=== PATIENT | female | born 1965 | race Caucasian/White ===

== ENCOUNTER → 2017-02-16 | Day surgery (SDC) | payer MEDICARE, MEDICAID ==
[~2017-02-16] VITALS: Ht 162.6 cm; Wt 68.0 kg
[2017-02-16 07:05] VITALS: BP 120/83
== END | disposition left against medical advice (07) ==
LOC: OR 02-09 08:00 → GI 02-09 08:00 → EDBD 08:00
DX: K59.00 Constipation, unspecified (principal); Z53.29 Procedure and treatment not carried out because of patient's decision for other reasons
CPT/HCPCS: J1200; J1610; J2250; J2310; J3010; J3490

== ENCOUNTER 2019-06-05 15:17 | Emergency (ER) | payer OTHER ==
[~2019-06-05] VITALS: Ht 162.6 cm; Wt 71.7 kg
[2019-06-05 15:26] VITALS: BP 128/73; Ht 162.6 cm; Wt 71.7 kg
== END 2019-06-05 16:37 | disposition home or self-care (01) ==
LOC: ED 15:17
DX: S86.912A Strain of unspecified muscle(s) and tendon(s) at lower leg level, left leg, initial encounter (principal); X58.XXXA Exposure to other specified factors, initial encounter; Y93.89 Activity, other specified; Y92.89 Other specified places as the place of occurrence of the external cause; Y99.8 Other external cause status
CPT/HCPCS: Q0092